=== PATIENT | female | born 1960 | race Two or more races ===

== ENCOUNTER → 2017-02-05 | Outpatient (CLI) | payer OTHER ==
[~2017-02-05] MED LIST: ALDACTONE25 MG PO; BREO ELLIPTA 11 EACH INH; BUSPAR10 MG PO; CALCIUM-MAGNES1 EAC1 PO; COZAAR100 MG PO; FISH OIL 1,2001 EACH PO; LIPITOR40 MG PO; MULTI VITAMIN1 EACH PO; NEFAZODONE HCL200 MG PO; PORTIA-28 TABL1 EACH PO; PRILOSEC OTC20 MG PO; PROAIR HFA8.5 GM INH; ZYRTEC-D TABLE1 EACH PO
== END ==
LOC: GBCOE 06:59
DX: Z12.31 Encounter for screening mammogram for malignant neoplasm of breast (principal)
CPT/HCPCS: G0202